=== PATIENT | female | born 1955 | race Caucasian/White ===

== ENCOUNTER 2020-07-06 20:54 | Emergency (ER) | payer OTHER, SELFPAY ==
[2020-07-06 20:57] VITALS: BP 150/101; PULSE 127; RESP 25; TEMP 36.7; O2SAT 95
[2020-07-06 22:01] VITALS: BP 165/89; PULSE 119; RESP 17; O2SAT 97
--- NOTE | 2020-07-06 22:25 | ED.FEMALEGU ---
HPI - Female Genitourinary General Chief complaint: Vaginal Bleeding Stated complaint: vaginal bleeding, abd cramping Time Seen by Provider: 07/06/20 21:43 Source: patient Mode of arrival: EMS Limitations: no limitations History of Present Illness HPI Narrative: This is a 65-year-old female that presents the emergency department for vaginal bleeding. Reports it started this afternoon. Reports she has had trouble with intermittent spotting for at least the last year. She has not seen anybody for this. Denies fever, abdominal pain, vomiting, dysuria, or hematuria. Related Data Home Medications Medication Instructions Recorded Confirmed ergocalciferol (vitamin D2) 1,250 mcg PO DAILY 07/06/20 metformin 1,000 mg PO QPM 07/06/20 valsartan-hydrochlorothiazide 1 tablet PO QAM 07/06/20 Allergies Allergy/AdvReac Type Severity Reaction Status Date / Time Cephalosporins Allergy Hives Verified 07/06/20 22:49 Penicillins Allergy Swelling Verified 07/06/20 22:48 Review of Systems Review of Systems: Narrative: CONSTITUTIONAL: Denies fever GASTROINTESTINAL: Denies abdominal pain, nausea, vomiting GENITOURINARY: Denies dysuria or hematuria. All systems reviewed & are unremarkable except as noted in HPI and below PMFSH Past Medical History Medical History (Updated 07/07/20 @ 00:22 by Fernanda Horton PA-C) History of diabetes mellitus History of hypertension Surgical History Surgical History (Updated 07/06/20 @ 22:26 by Fernanda Horton PA-C) History of cholecystectomy Exam Narrative: Exam Narrative: GENERAL: Well-appearing, well-nourished, and in no acute distress. HEAD: Normocephalic, atraumatic. EYES: EOMI. CHEST: Clear to auscultation. No respiratory distress. No wheezes rales or rhonchi HEART: Regular rate and rhythm. No murmur heard. Normal peripheral pulses. ABDOMEN: Soft, nontender, nondistended, normal active bowel sounds. EXTREMITIES: Normal range of motion. No edema. SKIN: Warm, dry, no rash. NEURO: No focal deficits. Alert and oriented x3. PSYCH: Normal mood and affect PELVIC: Moderate amount of bright red blood in the vaginal vault with clots Course Consultations Consultation #1: Spoke with Dr. Cool about patient and workup. Would like patient to be started on Iron and have a pelvic US. Will follow up in clinic Date: 07/07/20 Time: 00:22 Vital Signs Vital signs: Vital Signs Temperature 98.0 F 07/06/20 20:57 Pulse Rate 127 H 07/06/20 20:57 Respiratory Rate 25 H 07/06/20 20:57 Blood Pressure 150/101 H 07/06/20 20:57 Pulse Oximetry 95 07/06/20 20:57 Temperature 98.0 F 07/06/20 20:57 Pulse Rate 111 H 07/07/20 00:31 Respiratory Rate 20 07/07/20 00:31 Blood Pressure 139/56 L 07/07/20 00:31 Pulse Oximetry 94 07/07/20 00:31 MDM - Female Genitourinary MDM Narrative Medical decision making narrative: Patient presents to the ER for post-menopausal vaginal bleeding that started this afternoon. Patient tachycardic upon arrival, this did respond to IV fluid administration. Her blood pressure is stable. CBC shows microcytic anemia with hemoglobin of 9.5. On exam there is a moderate amount of bright red blood in the vaginal vault, slowly oozing from the cervix. Does report she had been having trouble with spotting over the last year. She has not seen anyone for this yet. Spoke with Dr. Cool about patient and workup. Would like patient to be started on Iron and have a pelvic US. Will follow up in clinic. Patient is stable and felt appropriate for further outpatient evaluation. She was given warnings to return to the ER Lab Data Attestation: I reviewed the patient's lab results. Result diagrams: 07/06/20 22:51 07/06/20 22:51 Labs: Lab Results 07/06/20 07/06/20 07/06/20 Range/Units 22:51 22:51 22:51 WBC 10.7 H (4.5-10.0) K/mm3 RBC 3.93 L (4.2-5.4) M/mm3 Hgb 9.5 L (12.0-15.0) g/dL Hct 30.4 L (37.0-47.0) % MCV 77.4 L
[2020-07-06] MEDS: SODIUM CHLORIDE 0.9% IV 1,000 ML 999 ML IV CONT (22:51)
[2020-07-06 23:01] VITALS: BP 151/76; PULSE 117; RESP 27; O2SAT 94
[2020-07-06 23:01] LABS: Basophils Percent Auto 0.4 % (0.2-1.2); Eosinophils Percent Auto 0.3 % (0-4.4); Hematocrit 30.4 % (37.0-47.0); Hemoglobin 9.5 g/dL (12.0-15.0); Immature Granulocyte Absolute 0.15 K/mm3 (0.00-0.031); Immature Granulocyte Percent A 1.4 % (0-0.5); Lymphocytes Absolute Auto 0.99 K/mm3 (0.9-3.2); Lymphocytes Percent Auto 9.3 % (18.3-44.2); Mean Corpuscular HGB Conc 31.3 g/dl (32-36); Mean Corpuscular Hemoglobin 24.2 pg (26-34); Mean Corpuscular Volume 77.4 fl (80-100); Mean Platelet Volume 9.8 fl (7.4-10.4); Monocytes Absolute Auto 0.7 K/mm3 (0.1-0.6); Monocytes Percent Auto 6.4 % (2.6-8.5); Neutrophils Absolute Auto 8.8 K/mm3 (1.3-6.7); Neutrophils Percent Auto 82.2 % (45.5-73.1); Platelet Count Result 218 k/mm3 (150-375); Red Blood Count 3.93 M/mm3 (4.2-5.4); Red Cell Distribution Width 14.7 % (11.5-14.5); White Blood Count 10.7 K/mm3 (4.5-10.0)
[2020-07-06 23:11] LABS: INR 1.1; Prothrombin Time 14.9 Seconds (11.1-14.7)
[2020-07-06 23:12] LABS: Partial Thromboplastin Time 26.5 SECONDS (22.3-36.8)
[2020-07-06 23:15] LABS: Alanine Aminotransferase 16 U/L (4-35); Albumin Level 3.6 g/dL (3.5-5.1); Alkaline Phosphatase 101 U/L (38-126); Anion Gap 7 mmol/L (8-16); Aspartate Amino Transferase 26 U/L (14-36); Bilirubin,Total 1.6 mg/dL (0.2-1.3); Blood Urea Nitrogen 9 mg/dL (7-17); Calcium 8.7 mg/dL (8.4-10.2); Carbon Dioxide 27 mmol/L (22-30); Chloride 103 mmol/L (98-107); Estimated CRCL calculation 106 ml/min; Estimated Glomerular Filt Rate > 60; Glucose 379 mg/dL (65-105); Potassium 4.1 mmol/L (3.4-5.0); Sodium 137 mmol/L (137-145)
[2020-07-06 23:47] LABS: Add Urine Microscopic? YES; Appearance Urine Clear (Clear); Bacteria Urine 2+ /hpf; Bilirubin Urine Negative (Negative); Blood Urine Negative (Negative); Color Urine Yellow (Yellow); Glucose Urine UA 3+ mg/dL (Negative); Ketones Urine 2+ mg/dL (Negative); Leukocyte Esterase Ur Negative LEU/UL (Negative); Mucus Urine Rare /lpf; Nitrate Urine Negative (Negative); Protein Urine 1+ mg/dL (Negative); Squamous Epithelial Cell Urine Rare /hpf (Few); Urobilinogen Urine Negative mg/dL (<2.0)
[2020-07-06 23:48] LABS: Specific Grav Ur 1.033 (1.001-1.035)
[2020-07-06 23:52] VITALS: BP 165/84; PULSE 115
[2020-07-06 23:53] VITALS: BP 168/84; PULSE 119
[2020-07-06 23:54] VITALS: BP 166/111; PULSE 133
[2020-07-07] VITALS: BP 166/111; PULSE 132; RESP 27
[2020-07-07 00:31] VITALS: BP 139/56; PULSE 111; RESP 20; RESP 29; O2SAT 93; O2SAT 94
[2020-07-07] MEDS: SODIUM CHLORIDE 0.9% IV 500 ML 999 ML IV CONT (00:31)
[2020-07-07 00:45] VITALS: BP 139/56; PULSE 109; RESP 28; O2SAT 92
== END 2020-07-07 01:30 | disposition home or self-care (01) ==
PROVIDERS: Physician Assistant; Emergency Provider Emergency Medicine; PCP Internal Medicine
DX: N95.0 Postmenopausal bleeding (principal); E11.9 Type 2 diabetes mellitus without complications; I10 Essential (primary) hypertension; Z79.84 Long term (current) use of oral hypoglycemic drugs
CPT/HCPCS: 36415; 80053; 81001; 85025; 85610; 85730; 86850; 86900; 86901; 87077; 87086; 87088; 87186; 96360; 96361; 99284; J7030; J7040

== ENCOUNTER → 2020-07-10 13:38 | Outpatient (CLI) | payer OTHER, SELFPAY ==
--- NOTE | ~2020-07-10 | US_ITS ---
US pelvic complete DATE: 07/10/2020 14:33 INDICATION: Abnormal uterine bleeding x3 since April. Anemia. TECHNIQUE: Real-time imaging via transabdominal approach COMPARISON: None FINDINGS: The uterus measures up to 15 cm height, 7 cm anteroposterior dimension. The central endomet rial echo measures approximately 1.4 cm anteroposterior dimension. There is an approximately 12 cm heterogeneous soft tissue mass at the anterior fundic area of the [place], likely a large uterine fibroid. Alternatively, an ovarian mass lesion is not excluded. The ovaries are not definitely visualized. No right or left adnexal mass lesion or abnormal free flui d collection within the pelvis is evident. IMPRESSION: Approximately 12 cm mass at the anterior aspect of the fundus, possibly a large fibroid. Differential diagnosis includes ovarian mass lesion. Consider CT or MR abdomen pelvis examination Central endometrial echo complex measures up to 1.4 cm AP dimension; endometrial malignancy is not ex cluded. Reviewed, dictated and finalized at [facility]. Reviewed, dictated and finalized at [facility]. IMPRESSION: Approximately 12 cm mass at the anterior aspect of the fundus, poss ibly a large fibroid. Differential diagnosis includes ovarian mass lesion. Consider CT or MR abdomen pelvis examination Central endometrial echo complex measures up to 1.4 cm AP dimension; endometria l malignancy is not excluded.
== END ==
PROVIDERS: Referring Provider Student in an Organized Health Care Education/Training Program; Visit Provider Physician Assistant
DX: N93.8 Other specified abnormal uterine and vaginal bleeding (principal)
CPT/HCPCS: 76856

== ENCOUNTER 2020-07-18 06:34 | Outpatient (CLI) | payer OTHER, SELFPAY ==
--- NOTE | ~2020-07-18 | MR_ITS ---
EXAMINATION: MR pelvis wo/w con DATE: 07/18/2020 08:15 INDICATION: Postmenopausal bleeding. TECHNIQUE: Magnetic resonance imaging (MRI) of the pelvis was performed without and with 20 mL Multih ance intravenous contrast. Fullfield sequences of the pelvis included axial and coronal T2-weighted S S FSE, coronal 2D FIESTA, axial T1-weighted FSPGR, axial dual-echo T1-weighted FSPGR and axial T1 eliud ghted LAVA. Small field of view sequences included axial, sagittal and coronal T2-weighted FSE cente red on the uterus and adnexa. Postcontrast sequences included a time course axial T1-weighted LAVA w ith fullfield of view of the pelvis. COMPARISON: Pelvic ultrasound dated 07/10/2020 FINDINGS: There is a 10.2 x 11.6 x 9.5 cm heterogeneously enhancing intrauterine mass at the right anterior fun dus. There is prominent thickening of the endometrial complex which measures 2.9 cm AP at the fundus and up to 3.8 cm in maximal AP diameter. The lower uterine segment. There is an approximately 3.1 x 2 .4 cm enhancing nodular region of enhancement within the endometrial complex at the left cornua which raises concern for malignancy. 3.8 x 3.8 x 2.8 cm enhancing nodule filling a small umbilical hernia. There is an additional 5.2 x 2. 0 x 5.6 cm heterogeneously enhancing mass extending between the anterior margin of the uterine fundus and the umbilical hernia. Both lesions are concerning for metastatic disease with differential also including endometrioma. 7 mm nonenhancing T2 hyperintense left adnexal cyst. Right adnexa is unremarkable. Visualized bowels are unremarkable. Small amount of ascites in the pelvis. No pathologically enlarged pelvic or left in guinal lymphadenopathy. A few mildly enlarged right inguinal lymph nodes, the largest measuring up to 1.5 cm maximal short axis diameter. IMPRESSION: 1. Prominent thickening of the endometrial complex which measures up to 3.8 cm at the lower uterine s egment with more discrete 3.1 x 2.4 cm enhancing nodule within the endometrial complex at the left co rnua which concerning for malignancy. Differential would include combination of endometrial hyperplas ia and endometrial polyp. 2. 11.6 cm uterine fibroid at the right fundus. 3. Couple enhancing masses, one measuring 5.2 x 5.6 x 2.0 cm positioned between the anterior uterine fundus and the anterior abdominal wall and the second measuring 3.8 x 3.8 x 2.8 cm fills a small umbi lical hernia. The location of the lesions suggest seeding along a laparoscopy tract and which could b e either metastatic or potentially endometriomas in the appropriate clinical setting. Correlate with clinical history. If indicated the umbilical lesion would be amenable to ultrasound-guided percutaneo us biopsy. 4. Mild enlarged likely reactive right inguinal lymphadenopathy. Reviewed, dictated and finalized at [facility] IMPRESSION: 1. Prominent thickening of the endometrial complex which measures up to 3.8 cm at the lower uterine segment with more discrete 3.1 x 2.4 cm enhancing nodule w ithin the endometrial complex at the left cornua which concerning for malignanc y. Differential would include combination of endometrial hyperplasia and endome trial polyp. 2. 11.6 cm uterine fibroid at the right fundus. 3. Couple enhancing masses, one measuring 5.2 x 5.6 x 2.0 cm positioned between the anterior uterine fundus and the anterior abdominal wall and the second greg suring 3.8 x 3.8 x 2.8 cm fills a small umbilical hernia. The location of the l esions suggest seeding along a laparoscopy tract and which could be either meta static or potentially endometriomas in the appropriate clinical setting. Correl ate with clinical history. If indicated the umbilical lesion would be amenable to ultrasound-guided percu
== END 2020-07-18 06:35 | disposition home or self-care (01) ==
PROVIDERS: PCP Internal Medicine; Visit Provider Student in an Organized Health Care Education/Training Program
DX: N95.0 Postmenopausal bleeding (principal); R93.89 Abnormal findings on diagnostic imaging of other specified body structures; D25.9 Leiomyoma of uterus, unspecified; K42.9 Umbilical hernia without obstruction or gangrene; R59.0 Localized enlarged lymph nodes
CPT/HCPCS: 72197; A9577